=== PATIENT | female | born 1980 | race Caucasian/White ===

== ENCOUNTER 2019-09-09 21:59 | Emergency (ER) | payer BC ==
[2019-09-10] MEDS ORDERED: Reglan 10 MG/2 ML IV ONE (00:22)
[2019-09-10] MEDS ORDERED: Sodium Chloride 0.9% 1000 ML 1,000 ML IV STA (00:22)
[2019-09-10] MEDS ORDERED: Zofran 4 MG/2 ML VIAL IV ONE (00:22)
[2019-09-10] MEDS ORDERED: BENADRYL 50 MG/ML IV ONE (00:24)
--- NOTE | 2019-09-10 00:24 | ERPHSYRPT ---
- History of Present Illness Time Seen by Provider: 09/10/19 00:17 Source: patient, family Exam Limitations: no limitations Patient Subjective Stated Complaint: high blood pressure on home monitor for past 2 days, headache, dizziness, light headedness. Triage Nursing Assessment: pt light sensitive and c/o head pain 8/10. pt states she had preeclampsia with all 4 children. alert and oriented x3. no further difficulties reported or notd. states has migraine hx, but this feels different Physician History: pt has hx of migraine and these are worse when BP is up and she found this this week and came in. no current neuro deficit reported double vision last week resolved. Timing/Duration: yesterday Severity: moderate Associated Symptoms: denies symptoms Hx Tetanus, Diphtheria Vaccination/Date Given: No Hx Influenza Vaccination/Date Given: No Hx Pneumococcal Vaccination/Date Given: No Immunizations Up to Date: Yes Travel Risk - International Travel Have you traveled outside of the country in past 3 weeks: No - Coronavirus Screening Are you exhibiting any of the following symptoms?: No Symptoms: Headaches/Body Aches/Fatigue Close contact with a COVID-19 positive Pt in past 14-21 Days: No - Review of Systems Constitutional: No Fever, No Chills Eyes: No Symptoms Ears, Nose, & Throat: No Symptoms Respiratory: No Cough, No Dyspnea Cardiac: No Chest Pain, No Edema, No Syncope Abdominal/Gastrointestinal: No Abdominal Pain, No Nausea, No Vomiting, No Diarrhea Genitourinary Symptoms: No Dysuria Musculoskeletal: No Back Pain, No Neck Pain Skin: No Rash Neurological: No Dizziness, No Focal Weakness, No Sensory Changes Psychological: No Symptoms Endocrine: No Symptoms All Other Systems: Reviewed and Negative - Past Medical History Pertinent Past Medical History: Yes Other Medical History: migraines, preeclampsia - Past Surgical History Past Surgical History: Yes - Social History Smoking Status: Current every day smoker How long have you smoked: 20 Exposure to second hand smoke: Yes Drug Use: none Patient Lives Alone: Yes - Female History Hx Last Menstrual Period: 09/09/19 Hx Now: No - Nursing Vital Signs Nursing Vital Signs: Initial Vital Signs Temperature 97.6 F 09/09/19 23:10 Pulse Rate 76 09/09/19 23:10 Respiratory Rate 18 09/09/19 23:10 Blood Pressure 167/103 09/09/19 23:10 O2 Sat by Pulse Oximetry 99 09/09/19 23:10 Pain Scale Pain Intensity 6 - Physical Exam General Appearance: no apparent distress, alert Eye Exam: PERRL/EOMI, eyes nml inspection Ears, Nose, Throat Exam: normal ENT inspection, TMs normal, pharynx normal, moist mucous membranes Neck Exam: normal inspection, non-tender, supple, full range of motion Respiratory Exam: normal breath sounds, lungs clear, No respiratory distress Cardiovascular Exam: regular rate/rhythm, normal heart sounds, normal peripheral pulses Gastrointestinal/Abdomen Exam: soft, normal bowel sounds, No tenderness, No mass Pelvic Exam: deferred Rectal Exam: deferred Back Exam: normal inspection, normal range of motion, No CVA tenderness, No vertebral tenderness Extremity Exam: normal inspection, normal range of motion, pelvis stable Neurologic Exam: alert, oriented x 3, cooperative, furniture assembler II-XII nml as tested, normal mood/affect, nml cerebellar function, nml station & gait, sensation nml, No motor deficits, No sensory deficit, No facial droop, No aphasia Skin Exam: normal color, warm, dry, No rash Lymphatic Exam: No adenopathy SpO2 Interpretation: normal SpO2: 97 O2 Delivery: Room Air - Course Nursing assessment & vital signs reviewed: Yes Ordered Tests: Active Orders 24 hr Category Date Time Status IV Insertion STAT Care 09/10/19 00:22 Active Pulse Oximetry (ED) STAT Care 09/10/19 00:22 Active CBC W DIFF Stat Lab 09/10/19 00:32 Completed CMP Stat Lab 09/10/19 00:32 Completed Erythrocyte Sedimentation Rate Stat Lab 09/10/19 00:32 Completed HCG QUALITATIVE,SERUM Stat Lab 09/10/19 00:32 Completed Medication Summary Generic Name Dose Route Start Last Admin Trade Name Freq PRN Reason Stop Dose Admin Magnesium Sulfate/Dextrose 100 mls @ 100 mls/hr 09/10/19 00:30 09/10/19 00:58 Magnesium 1 Gm / 100 Ml D5w IV 09/10/19 02:29 100 mls/hr Q1H AMADOU Administration Discontinued Medications Generic Name Dose Route Start Last Admin Trade Name Freq PRN Reason Stop Dose Admin Diphenhydramine HCl 25 mg 09/10/19 00:24 09/10/19 00:48 Benadryl 50 Mg/Ml IV 09/10/19 00:25 25 mg STAT ONE Administration Diphenhydramine HCl Confirm 09/10/19 00:47 Benadryl 50 Mg/Ml Administered 09/10/19 00:48 Dose 50 mg .ROUTE .STK-MED ONE Sodium Chloride 1,000 mls @ 999 mls/hr 09/10/19 00:22 09/10/19 02:10 Sodium Chloride 0.9% 1000 Ml IV 09/10/19 01:22 Infused .Q1H1M STA Infusion Sodium Chloride Confirm 09/10/19 00:47 Sodium Chloride 0.9% 1000 Ml Administered 09/10/19 00:48 Dose 1,000 mls @ ud .ROUTE .STK-MED ONE Ketamine HCl 10 mg 09/10/19 01:45 09/10/19 02:12 Ketamine Hcl 50 Mg/Ml IV 09/10/19 01:46 10 mg STAT ONE Administration Lisinopril 10 mg 09/10/19 01:10 09/10/19 01:52 Zestril 10 Mg PO 09/10/19 01:11 10 mg STAT STA Administration Lorazepam 1 mg 09/10/19 01:46 09/10/19 02:12 Ativan 1 Mg PO 09/10/19 01:47 1 mg STAT ONE Administration Lorazepam Confirm 09/10/19 02:11 Ativan 1 Mg Administered 09/10/19 02:12 Dose 1 mg .ROUTE .STK-MED ONE Metoclopramide HCl 10 mg 09/10/19 00:22 09/10/19 00:49 Reglan 10 Mg/2 Ml IV 09/10/19 00:23 10 mg STAT ONE Administration Metoclopramide HCl Confirm 09/10/19 00:47 Reglan 10 Mg/2 Ml Administered 09/10/19 00:48 Dose 10 mg .ROUTE .STK-MED ONE Ondansetron HCl 4 mg 09/10/19 00:22 09/10/19 00:49 Zofran 4 Mg/2 Ml Vial IV 09/10/19 00:23 4 mg STAT ONE Administration Ondansetron HCl Confirm 09/10/19 00:47 Zofran 4 Mg/2 Ml Vial Administered 09/10/19 00:48 Dose 4 mg .ROUTE .STK-MED ONE Lab/Rad Data: Laboratory Result Diagrams 09/10/19 00:32 09/10/19 00:32 Laboratory Results 09/10/19 09/10/19 09/10/19 Range/Units 00:32 00:32 00:32 WBC 7.0 (4.0-10.5) K/mm3 RBC 4.48 (4.1-5.4) M/mm3 Hgb 14.4 (12.0-16.0) gm/dl Hct 41.9 (35-47) % MCV 93.5 (78-100) fl MCH 32.1 H (26-32) pg MCHC 34.4 (32-36) g/dl RDW 13.0 (11.5-14.0) % Plt Count 201 (150-450) K/mm3 MPV 10.7 (7.5-11.0) fl Gran % 53.1 (36.0-66.0) % Eos # (Auto) 0.12 (0-0.5) Absolute Lymphs (auto) 2.60 (1.0-4.6) Absolute Monos (auto) 0.57 (0.0-1.3) Lymphocytes % 37.0 (24.0-44.0) % Monocytes % 8.1 (0.0-12.0) % Eosinophils % 1.7 (0.00-5.0) % Basophils % 0.1 (0.0-0.4) % Absolute Granulocytes 3.73 (1.4-6.9) Basophils # 0.01 (0-0.4) ESR 9 (0-20) mm/hr Sodium 139 (137-145) mmol/L Potassium 3.4 L (3.5-5.1) mmol/L Chloride 105 (98-107) mmol/L Carbon Dioxide 27 (22-30) mmol/L Anion Gap 11.0 (5-15) MEQ/L BUN 9 (7-17) mg/dL Creatinine 0.68 (0.52-1.04) mg/dL Estimated GFR > 60.0 ML/MIN Glucose 105 (74-106) mg/dL Calcium 9.6 (8.4-10.2) mg/dL Total Bilirubin 0.30 (0.2-1.3) mg/dL AST 22 (14-36) U/L ALT 17 (0-35) U/L Alkaline Phosphatase 74 (38-126) U/L Serum Total Protein 7.2 (6.3-8.2) g/dL Albumin 4.1 (3.5-5.0) g/dL Serum , Qual NEGATIVE (Negative) - Progress Progress: improved, re-examined Progress Note: 09/10/19 02:38 after the discussion of risk and benefit of CT they wish to decline CT at this time and f/u with PCP to consider diagnostic options and understand that we cannot detect certain serious and life-threatening conditions without this , but have the capacity to make that choice. the pt and wish to try low dose ketamine and this did relieve the headache and she wishes to go home at this time. and will f/u PCP and neuro. 09/10/19 02:42 09/10/19 02:46 yadira lisinopril without problems and states that she has taken this before for BP. Counseled pt/family regarding: lab results, diagnosis, need for follow-up, rad results - Departure Departure Disposition: Home Clinical Impression: Hypertension, Headache Condition: Good Critical Care Time: No Referrals: JOHN HARRELL, [employer] [Primary Care Provider] - Instructions: Headache, Adult (DC), High Blood Pressure (DC) Additional Instructions: followup with your DrLucas for headache workup and for Hypertension, and return meantime if not improving or other symptoms or concerns. Prescriptions: Lisinopril 10 mg [Zestril 10 MG] 10 mg PO DAILY #10 tablet
[2019-09-10 00:36] LABS: Absolute Neutrophil Ct (ANC) 3.73 (1.4-6.9); BASOPHIL % 0.1 % (0.0-0.4); Basophil (Absolute #) 0.01 (0-0.4); Eosinophil % 1.7 % (0.00-5.0); Eosinophil (Absolute #) 0.12 (0-0.5); Hematocrit 41.9 % (35-47); Hemoglobin 14.4 gm/dl (12.0-16.0); Mean Cell Volume 93.5 fl (78-100); Mean Corpuscular Hemoglobin 32.1 pg (26-32); Mean Corpuscular Hgb Concent. 34.4 g/dl (32-36); Mean Platelet Volume 10.7 fl (7.5-11.0); Monocyte (Absolute #) 0.57 (0.0-1.3); Monocytes % 8.1 % (0.0-12.0); Neutrophil % 53.1 % (36.0-66.0); Platelet Count 201 K/mm3 (150-450); Red Blood Count 4.48 M/mm3 (4.1-5.4)
[2019-09-10 00:45] LABS: ALBUMIN 4.1 g/dL (3.5-5.0); ALKALINE PHOSPHATASE 74 U/L (38-126); BLOOD UREA NITROGEN 9 mg/dL (7-17); CHLORIDE 105 mmol/L (98-107); Calcium 9.6 mg/dL (8.4-10.2); Carbon Dioxide 27 mmol/L (22-30); Creatinine 1 0.68 mg/dL (0.52-1.04); Glucose 105 mg/dL (74-106); Potassium 3.4 mmol/L (3.5-5.1); SGOT/AST 22 U/L (14-36); SGPT/ALT 17 U/L (0-35); SODIUM 139 mmol/L (137-145); Total Protein 7.2 g/dL (6.3-8.2)
[2019-09-10] MEDS ORDERED: Sodium Chloride 0.9% 1000 ML 1,000 ML ONE (00:47)
[2019-09-10] MEDS ORDERED: Magnesium 1 Gm / 100 Ml D5W*** 200 ML IV ONE (00:47)
[2019-09-10] MEDS ORDERED: Reglan 10 MG/2 ML ONE (00:47)
[2019-09-10] MEDS ORDERED: Zofran 4 MG/2 ML VIAL ONE (00:47)
[2019-09-10] MEDS ORDERED: BENADRYL 50 MG/ML ONE (00:47)
[2019-09-10] MEDS: Magnesium 1 Gm / 100 Ml D5W*** 100 ML IV SCH ×2 (00:57→00:58)
[2019-09-10 01:00] LABS: Erythrocyte Sedimentation Rate 9 mm/hr (0-20)
[2019-09-10] MEDS ORDERED: Zestril 10 MG PO STA (01:10)
[2019-09-10] MEDS ORDERED: Ketamine HCl 50 MG/ML IV ONE (01:45)
[2019-09-10] MEDS ORDERED: Ativan 1 MG PO ONE (01:46)
[2019-09-10] MEDS ORDERED: Ativan 1 MG ONE (02:11)
[2019-09-10 03:01] VITALS: BP 162/98; PULSE 69; O2SAT 100
== END 2019-09-10 03:01 | disposition home or self-care (01) ==
LOC: ED 21:59
DX: I10 Essential (primary) hypertension (principal); R51 Headache; F19.90 Other psychoactive substance use, unspecified, uncomplicated
CPT/HCPCS: 36000; 36415; 80053; 81025; 85025; 85652; 93005; 94760; 96360; 96365; 96374; 96375; 99285; J1200; J2405; J3475; A9270-GY